=== PATIENT | male | born 1965 | race Caucasian/White ===

== ENCOUNTER 2022-10-18 04:12 | Day surgery (SDC) | payer BC ==
[2022-10-14 12:36] VITALS: BMI 22.4
[2022-10-18 12:56] VITALS: RESP 20
[2022-10-18] MEDS ORDERED: MIDAZOLAM HCL 2 MG/2 ML SINGLE DOSE VIAL ONE (15:30)
[2022-10-18 16:40] VITALS: TEMP 97.3
[2022-10-18 17:54] VITALS: BP 105/74; PULSE 85
== END 2022-10-18 17:35 | disposition home or self-care (01) ==
LOC: JASU-SURG 04:12
PROVIDERS: ATTEND Urology
PROC: 0TF3XZZ Fragmentation in Right Kidney Pelvis, External Approach (ICD-10-PCS; principal; 2022-10-18 14:30)
DX: N20.0 Calculus of kidney (principal)
CPT/HCPCS: 82962